=== PATIENT | female | born 1990 | race Caucasian/White ===

== ENCOUNTER 2024-10-02 16:23 | Outpatient (CLI) | payer BC, SELFPAY | END 2024-10-02 16:24 | disposition home or self-care (01) | LOC: NFLDREF 10-07 23:23 | PROVIDERS: Visit Provider Advanced Practice Midwife | DX: Z34.93 Encounter for supervision of normal pregnancy, unspecified, third trimester (principal); R79.0 Abnormal level of blood mineral; Z3A.32 32 weeks gestation of pregnancy | CPT/HCPCS: 82728; 86592 ==

== ENCOUNTER 2024-10-23 14:17 | Outpatient (CLI) | payer BC, SELFPAY | END 2024-10-23 14:18 | disposition home or self-care (01) | LOC: NFLDREF 10-27 18:01 | PROVIDERS: Visit Provider Advanced Practice Midwife | DX: Z34.83 Encounter for supervision of other normal pregnancy, third trimester (principal) | CPT/HCPCS: 87081; 87653 ==

== ENCOUNTER 2024-11-24 02:50 | Inpatient (IN) | payer BC, SELFPAY ==
[2024-11-24] VITALS (51 sets, daily range): BP systolic 112–154; BP diastolic 58–80; PULSE 55–168; RESP 16–18; TEMP 36.7–37.3; O2SAT 87–100; BMI 33.0
--- NOTE | 2024-11-24 02:50 | P.LDBA_ITS ---
Subjective History of Present Illness Date Seen: 11/24/24 Narrative: Patient is being admitted to Labor and Delivery for spontaneous labor. Reports contractions for the last 1-2 days which got stronger this evening around 2100. She is a 34 year old at 40.1 weeks gestation, her Devon is here with her. On arrival she was placed on the EFM and with her first contraction had a deep variable to 50-60's that lasted 2.5 minutes. Second contraction on the monitor she had another deep variable to the 60's for approximately 40 seconds, the next contraction baby tolerated well without deceleration. Moderate variability with accelerations and now occasional variables with contra ctions are seen. Her full history and physical was dictated by myself on 10/31/24. Please see this for details. Specific Issues/Plans Partner: Devon? Transfer at 32 weeks from [facility]. H&P completed by Carmencita Boyer CNM on 10/31/24? ? #Breech at 36.5 weeks, RESOLVED Bedside US 11/05 Vertex presentation Consider US on admission to Center to confirm presentation # Advanced maternal age?35-39 years old at delivery? Recommend Genetic Screening Test-normal NIPT ? 20-week Level II detailed ultrasound with M-not completed at outside facility before transfer # Echogenic cardiac foci. NIPT normal. # Restless leg syndrome, Low ferritin, normal Hgb Received IV Venofer, helped some # Anxiety. No current concerns. # Vitamin D deficiency # Hx of tongue tie with other children that make her journey a struggle Desires to see Imaging:? 1st trimester: none in transfer record. Please confirm at next visit. ? Anatomy scan: 07/07/24 Single IUP. Small intracardiac echogenic focus in right ventricle, normal NIPT and no other abnormalities. EFW 48%.?? Transfer OB Labs:? Blood type: A+, antibody screen negative.? Hgb (05/15): 12.4? Ferritin (05/15): 7; (07/28) 4??? Platelets (05/15): 248? Rubella: Immune? RPR: non-reactive? HBsAg: negative? HIV: negative? GC/Chlamydia: not done? Pap (01/2020): NIL? 1hr gtt: not completed, A1C 4.9?(done here at 32 weeks) TSH (05/15): 2.51 Vit D (05/15): 25; 14 35 ? Immunizations/Other: 32wk Mental Health:? 34wk hgb 10/02/24:?12.0 Pap: due PP? COVID: declined Flu: declined, TDAP: declined OB - Problem Based A/P Additional Plan (1) Pain during labor: Status: Acute (2) 40 weeks gestation of : Status: Acute Plan Assessment:?? at 40.1 weeks gestation?? GBS negative? Patient is coping well with challenges of labor.?? Labor type: Spontaneous, Early labor? Category 2 FHR pattern.? complicated by: #Breech at 36.5 weeks, RESOLVED # Advanced maternal age?35-39 years old at delivery? # Echogenic cardiac foci. NIPT normal. # Restless leg syndrome, # Anxiety. No current concerns. # Vitamin D deficiency #Hx of tongue tie would like to meet with during this stay Plan:?? * ?Admit to L & D? * IV access: none, consider if return of deep prolonged variables * Monitoring per policy: continuous ? * Candidate for analgesia of choice.? Planning unmedicated for pain management * Desires waterbirth.? Consent signed and Hep C negative * Expectant management at this time ? * Patient encouraged to reposition and ambulate to promote physiologic labor and . * Anticipate ? Delivery/Labor/Induction Plan Plan: expectant management OB Exam Physical Exam Vital signs: Temp Pulse Resp BP Pulse Ox 98.3 F 55 L 16 124/77 100 11/24/24 02:25 11/24/24 02:18 11/24/24 02:25 11/24/24 02:18 11/24/24 02:14 Narrative: Vitals Reviewed Constitutional:? Alert and oriented x3 HEENT:? Normocephalic, atraumatic Neck:? Supple Lungs:? Clear to auscultation bilaterally Heart:? Regular rate and rhythm, no murmur, rub or gallop Abdomen:? Soft, nontender, and gravid. Vertex by Eligio's, confirmed with cervical exam per RN. Extremities:? No edema or erythema Cervix: 3.5 cm/60%/-1 station vertex NST: 135 bpm/moderate variability/+accelerations/ prolonged and variable decelerations/ moderate contractions Detailed Labor and Delivery Exam Patient Gravid: yes
--- NOTE | 2024-11-24 05:21 | PM.OBPNL ---
Subjective Date Seen: 11/24/24 Narrative: ?Shazia is coping well with labor pain/contractions. ?Devon is with her for support. ?She is using repositioning and relaxation for comfort and pain management.?She has started feeling some rectal pressure with contractions. Objective Exam: VSS, afebrile General Appearance:? Calm, cooperative. ?No acute distress. ? Psychiatric Exam: Alert and oriented, appropriate affect Abdomen: Gravid Ctx: ?Q 3-5 min apart. ? ?Moderate ? FHTs: Baseline: 140. ? ? Variability: moderate. ?Accels:+. ? ?Decels: ?variables with some contractions. SVE: /-1 Membranes: Intact ? Vital Signs: Last Vital Signs Temp 98.3 F 11/24/24 02:25 Pulse 58 L 11/24/24 05:20 Resp 16 11/24/24 02:25 BP 116/58 L 11/24/24 05:20 Pulse Ox 100 11/24/24 02:14 Plan Plan: Assessment:?? at 40.1 weeks gestation?? GBS neg Patient is coping well with challenges of labor.?? Labor type: Spontaneous, Early labor? Category 2 FHR pattern.? complicated by: #Breech at 36.5 weeks, RESOLVED # Advanced maternal age?35-39 years old at delivery? # Echogenic cardiac foci. NIPT normal. # Restless leg syndrome, # Anxiety. No current concerns. # Vitamin D deficiency #Hx of tongue tie would like to meet with during this stay Labor complicated by: Category 2 tracing? Plan:?? Continue with routine intrapartum cares as ordered.?? Patient encouraged to move and change positions to promote physiologic labor and .?? Nonpharmacologic comfort measures per patient preference. Candidate for analgesia of choice if desired. Patient planning waterbirth Anticipate progress to NVD. ?
[2024-11-24 06:41] LABS: Hematocrit 38.5 % (33.0-51.0); Hemoglobin* 12.9 gm/dL (12.0-16.0); Immature Granulocytes Abs Auto 0.13 K/uL (0.00-0.30); Immature Granulocytes Pct Auto 1.4 %; Mean Corpuscular HGB Conc 34 gm/dL (32-36); Mean Corpuscular Hemoglobin 31 pg (26-34); Mean Corpuscular Volume 92 fL (80-100); RDW Coefficient of Variation % 14.8 % (11.5-15.5); Red Blood Count 4.20 m/uL (4.00-5.20); White Blood Count* 9.38 K/uL (4.50-11.00)
[2024-11-24 06:42] LABS: Lymphocytes Absolute Auto 1.30 K/uL (0.90-2.90); Slide Review Reflex No
[2024-11-24] MEDS: LACTATED RINGERS 1000 ML 1,000 ML 500 ML IV (07:49)
--- NOTE | 2024-11-24 08:00 | PM.OBPNL ---
Subjective Date Seen: 11/24/24 Narrative: Patient was admitted to Labor and Delivery for spontaneous labor. She is a 34 year old at 40.1 weeks gestation, her Devon is here with her. She is coping very well with increasing intensity and frequency of contractions with increasing pressure. No LOF. Good movement. She does report some bloody show with her last void. Intermittent deep variables noted. Specific Issues/Plans Partner: Devon?Transfer at 32 weeks from [facility]. H&P completed by Carmencita Boyer CNM on 10/31/24? ? #Breech at 36.5 weeks, RESOLVED Bedside US 11/05 Vertex presentation Consider US on admission to Center to confirm presentation # Advanced maternal age?35-39 years old at delivery? Recommend Genetic Screening Test-normal NIPT ? 20-week Level II detailed ultrasound with MFM-not completed at outside facility before transfer # Echogenic cardiac foci. NIPT normal. # Restless leg syndrome, Low ferritin, normal Hgb Received IV Venofer, helped some # Anxiety. No current concerns. # Vitamin D deficiency # Hx of tongue tie with other children that make her journey a struggle Desires to see Imaging:? 1st trimester: none in transfer record. Please confirm at next visit. ? Anatomy scan: 07/07/24 Single IUP. Small intracardiac echogenic focus in right ventricle, normal NIPT and no other abnormalities. EFW 48%.?? Transfer OB Labs:? Blood type: A+, antibody screen negative.? Hgb (05/15): 12.4? Ferritin (05/15): 7; (07/28) 4??? Platelets (05/15): 248? Rubella: Immune? RPR: non-reactive? HBsAg: negative? HIV: negative? GC/Chlamydia: not done? Pap (01/2020): NIL? 1hr gtt: not completed, A1C 4.9?(done here at 32 weeks) TSH (05/15): 2.51 Vit D (05/15): 25; 4/14 35 ? Immunizations/Other: 32wk Mental Health:? 34wk hgb 10/02/24:?12.0 Pap: due PP? COVID: declined Flu: declined, TDAP: declined Objective Exam: Objective: Constitutional: Alert and oriented x3, no distress, coping well Vital signs stable, see nurse documentation Abdomen: gravid, contractions palpate moderate with contractions and soft between Cervix: 6-7 cm/90%/-1 station/vertex. with palpable sutures and verified with informal bedside US NST: 135 bpm/moderate variability/accelerations present/variable decelerations intermittent and periodic/every 5-6 min contractions x 90-100 sec Vital Signs: Last Vital Signs Temp 98.4 F 11/24/24 07:22 Pulse 58 L 11/24/24 07:22 Resp 18 11/24/24 07:22 BP 121/76 11/24/24 07:22 Pulse Ox 99 11/24/24 07:59 Plan Plan: ASSESSMENT:?? 34 at 40 1/7 weeks gestation?? complicated by:?AMA Labor type: Spontaneous, active labor?? Category 2 FHR pattern.??? Labor complicated by: Cat 2 tones?? GBS negative ?? PLAN:?? 1. Routine intrapartum cares as ordered. Continue with expectant management, continue to treat cat 2 tones consdervatively 2. Monitoring per policy, continuous 3. Planning unmedicated . Desires water but discussed increased risk due to cat 2 tones and I cannot guarantee that baby's reflexes are intact enough to safely under water. Pt verbalized understanding. If decels resolve, will consider waterbirth if able. 4. Patient encouraged to reposition and ambulate to promote physiologic labor and .?? 5. Anticipate ?
--- NOTE | 2024-11-24 09:37 | W.PM.VAGDE_ITS ---
OB Procedure Vag Delivery Mother Details Mother Details: The patient is a 34 year-old, 5, Para 4, admitted on 11/24/24 at 40w1d gestation. Admission Date: 11/24/24 Additional Details Amniotic Membrane Status: SROM Amniotic Membrane Rupture Date: 11/24/24 Amniotic Membrane Rupture Time: 09:12 Amniotic Membrane Fluid Description: Clear Analgesia/Anesthesia Type: None Waterbirth: No Pitcoin: No Intrapartal Events: None Labor Onset: 21:00 (on 11/23) Complete: 08:53 (assumed with spontaneous pushing) Pushin:53 Heart: heart tones during second stage were category 2 with intermittent deep variables but rapid progress was evident. Delivery Details Delivery Date: 11/24/24 Delivery Time: :17 Route of delivery: Gender: Male Viability: Alive; Heart Rate Present Position at Delivery: OA Delivery Details: Patient was admitted for spontaneous labor at term and progressed normally with out augmentation. SROM noted at 0912 with clear fluid. Patient was complete at 0853 after lip cervical anterior lip reduced and pushing at 0853. of a viable male at 0917 in right lateral position. Vertex delivered OA. One nuchal cord easily slipped. No shoulder dystocia. Body delivered easily and without incident. passed to mothers abdomen and was stimulated. Cord was clamped and cut at > 5 minutes. APGARS were 7 at one minute and 8 at five minutes respectively. Mouth was bulb suctioned. Intact placenta with a 3 vessel cord delivered spontaneously at 0925. Fundus firm. No lacerations identified. QBL 150 cc. Mother and baby stable; mother plans to breastfeed. Infant weight 7lb 14.6oz.? 1 Minute Interval Total Score: 7 5 Minute Interval Total Score: 8 Additional Details Shoulder Dystocia: No Placenta Delivery Time: 09:25 Placental Delivery Description: Spontaneous Procedure Done: Global Blood Loss: 150 Laceration: None Episiotomy Description: None Blood Loss Measurement Type: QBL Bakri Used: No Sponge/Need Count Correct: Yes Cord Vessel Description: 3 Vessels, Nuchal Cord and Reduced Event Summary Status: Mother and infant were stable after delivery. Mack Vu APRN, CNM, was present for visit and have reviewed and agree with documentation by the Certified Nurse Midwifery Student.? Disposition: floor
[2024-11-25 04:43] VITALS: BP 117/78; PULSE 78; RESP 16; TEMP 37; O2SAT 98
[2024-11-25 06:50] LABS: Hemoglobin* 12.4 gm/dL (12.0-16.0)
--- NOTE | 2024-11-25 09:08 | P.DS_ITS ---
DS: Providers Provider Date Seen: 11/25/24 Date of admission: 11/24/24 02:50 Primary care physician: Not a Local Provider Admitting Clinician: Mario Boyer CNM Attending Physician on discharge: Mario Boyer CNM DS: Diagnosis Discharge Diagnosis (1) care and examination immediately after delivery: Status: Acute (2) Lactating mother: Status: Acute (3) Anxiety: Status: Acute Exam Narrative: Exam Narrative: GENERAL APPEARANCE:? normal affect, alert, no distress MOOD:? appropriate CHEST:? clear to auscultation HEART:? regular rate and rhythm ABDOMEN:? soft, non-tender the uterine fundus is At Umbilicus, Midline and is appropriate for the stage of recovery. PERINEUM:? mild edema of the perineum. EXTREMITIES:? normal and no edema Const: Vital Signs, click to edit/add: Vital Signs - 24 hr 11/24/24 09:17 11/24/24 09:22 11/24/24 09:26 Temperature Pulse Rate Pulse Rate [Pulse Oximeter] Respiratory Rate 18 Blood Pressure Blood Pressure [Ri ght Arm] Pulse Oximetry 95 100 Oxygen Delivery Me thod 11/24/24 09:27 11/24/24 09:28 11/24/24 09:35 Temperature Pulse Rate 83 70 Pulse Rate [Pulse Oximeter] Respiratory Rate Blood Pressure 154/73 H 136/63 Blood Pressure [Ri ght Arm] Pulse Oximetry 100 Oxygen Delivery Pa thod 11/24/24 09:35 11/24/24 09:41 11/24/24 09:42 Temperature 99.2 F Pulse Rate 70 Pulse Rate [Pulse Oximeter] Respiratory Rate 18 18 Blood Pressure 129/65 Blood Pressure [Ri ght Arm] Pulse Oximetry Oxygen Delivery Pa thod 11/24/24 09:56 11/24/24 09:57 11/24/24 10:11 Temperature Pulse Rate 62 Pulse Rate [Pulse Oximeter] Respiratory Rate 18 18 Blood Pressure 123/67 Blood Pressure [Ri ght Arm] Pulse Oximetry Oxygen Delivery Pa thod 11/24/24 10:12 11/24/24 10:26 11/24/24 10:27 Temperature Pulse Rate 67 68 Pulse Rate [Pulse Oximeter] Respiratory Rate 16 Blood Pressure 121/77 124/65 Blood Pressure [Ri ght Arm] [facility] 10[facility]45 11/24/24 10:45 11/24/24 10:58 Temperature Pulse Rate 68 Pulse Rate [Pulse Oximeter] Respiratory Rate 18 18 Blood Pressure 113/58 L Blood Pressure [Ri ght Arm] Pulse Oximetry Oxygen Delivery Me thod 11/24/24 10:59 11/24/24 11:11 11/24/24 11:12 Temperature 98.5 F Pulse Rate 67 61 Pulse Rate [Pulse Oximeter] Respiratory Rate 18 Blood Pressure 118/70 121/69 Blood Pressure [Ri ght Arm] Pulse Oximetry Oxygen Delivery Me thod 11/24/24 11:26 11/24/24 11:27 11/24/24 13:17 Temperature 98.6 F Pulse Rate 57 L Pulse Rate [Pulse Oximeter] 68 Respiratory Rate 18 16 Blood Pressure 117/65 Blood Pressure [Ri ght Arm] 113/69 Pulse Oximetry 97 Oxygen Delivery Pa thod Room Air 11/24/24 16:41 11/24/24 20:00 11/24/24 23:19 Temperature 99.2 F 98.0 F 98.2 F Pulse Rate Pulse Rate [Pulse Oximeter] 68 66 62 Respiratory Rate 16 18 16 Blood Pressure Blood Pressure [Ri ght Arm] 112/80 117/71 117/78 Pulse Oximetry 96 98 Oxygen Delivery Me thod Room Air Room Air Room Air 11/25/24 04:43 Temperature 98.6 F Pulse Rate Pulse Rate [Pulse Oximeter] 78 Respiratory Rate 16 Blood Pressure Blood Pressure [Ri ght Arm] 117/78 Pulse Oximetry 98 Oxygen Delivery Me thod Room Air OB - DS: Summary Hospital Course Hospital Course: Shazia is a 34 y.o. G 5 P 4 who was admitted to L & D for spontaneous onset of labor. ?She had a NVD that was uncomplicated. The patient feels well. ?The pain is well controlled with current medications. ?She has no new complaints. ?She is breast feeding and reports things are going well. the patient has done well.? Vitals have been stable.? She has remained afebrile.? Has a good appetite, is tolerating a general diet. ?She is voiding without difficulty.? She is passing gas and has not had a bowel movement.? She is ambulating and denies any dizziness.? Has small amount of rubra lochia. Problems: none Discharge home with baby.? Follow up in 2 weeks and 6 weeks.? , may see if needed? Hgb 12.4. ?? For pain control of perineum, breast and pelvic pain, take 600 mg Ibuprofen every 6 hours as needed by mouth or 1000 mg acetaminophen (Tylenol) every 6 hours by mouth as needed. You can alternate these so you are taking something every 3 hours as needed. A heating pad can also be used for your abdomen or breasts. You may also take docusate sodium up to twice daily to soften your stools and help to prevent constipation. You may wean off of it when your stools return to normal.? Peripartum Data delivery method: Vaginal Laceration description: None complications: none Infant Gender: Male Discharge Plan: Home Status at Discharge Functional status at discharge: independent ambulation Overall status at discharge: patient is progressing back to baseline Time Spent with Patient Time attestation: Total time spent providing and/or coordinating discharge services: Time spent: Less than 30 minutes Discharge Plan Discharge Disposition: Home, Self-Care Date of Admission: 11/24/24 02:50 Attending Provider on Discharge: Yanet Castanon Primary Care Provider: Provider,Not a Local Condition: Stable Anticipated Discharge Date/Time: 11/25/24 12:00 Discharge Medications: New acetaminophen 500 mg Tablet 1,000 mg PO Q6H PRNQty: 0 0RF docusate sodium 100 mg Capsule 100 mg PO DAILY Qty: 0 0RF ibuprofen 600 mg Tablet 600 mg PO Q6H PRNQty: 0 0RF Continued cholecalciferol (vitamin D3) 250 mcg (10,000 unit) tablet 250 mcg PO QDAY PRN Triple Magnesium Complex 400 mg magnesium capsule PO DAILY One-A-Day -1 27 mg iron- 800 mcg-235 mg capsule 1 cap PO DAILY Vitron-C 65 mg iron- 125 mg tablet,delayed release (DR/EC) 1 tab PO QDAY Discharge Orders: Discharge Order (Routine); Ordered 11/25/24 Ordered By: Yanet Castanon Patient Education: OB Over the Counter Medication Information, OB Vaginal/Breast Feeding Additional Instructions: Discharge instructions were reviewed with the patient including signs and sy mptoms of infection and home going medications Nothing vaginally for 6 weeks: no tampons or intercourse Off Work or School for 6 weeks 2-week visit: discuss infant feeding concerns, review control options and screen for anxiety/depression. 6-week visit for an annual exam. consultation services are available to all mothers and babies for the first year after delivery.? To make an appointment, please call [phone]. Activity Level: Activity as Tolerated and No strenuous activity Discharge Diet: Regular Follow Up Appointments: [facility] [Provider Group] Forms: [employer] Info Instructions
[2024-11-25 09:19] VITALS: BP 119/76; PULSE 77; RESP 16; TEMP 36.6; O2SAT 97
== END 2024-11-25 13:22 | disposition home or self-care (01) | DRG 560 ==
LOC: OB OUT 02:50 → OB 02:50
PROVIDERS: Midwife; Admitting Provider Advanced Practice Midwife; Visit Provider Advanced Practice Midwife
DX: O76 Abnormality in fetal heart rate and rhythm complicating labor and delivery (principal); O99.344 Other mental disorders complicating childbirth; F41.9 Anxiety disorder, unspecified; Z37.0 Single live birth; Z3A.40 40 weeks gestation of pregnancy
CPT/HCPCS: 36415; 85018; 85025; 86592; 86850; 86900; 86901; J7120

== ENCOUNTER 2024-11-27 10:55 | Outpatient (CLI) | payer BC, SELFPAY ==
--- NOTE | 2024-11-27 13:43 | W.PM.LAC.MC ---
Consult Note - Mom Date of Visit Date of visit: 11/27/24 Reason for consultation: Assistance Needed and Other (questioning tongue/lip tie) Visit Code: Visit Patient's Information Phone number: [phone] : 5 Para: 4 Allergies No Known Drug Allergies Allergy (Verified 11/19/24 13:34) Mother's Medical History: Medical History (Updated 11/27/24 @ 00:01 by Background Daemon) Family history of factor V deficiency ?Z83.2 - Family history of diseases of the blood and blood-forming organs and certain disorders involving the immune mechanism (ICD-10) Work Plans: return to work Apr 2025, dental hygienist Delivery Information Delivery type: Vaginal Gestational Age: 40+1 Gestational Weight For Age: AGA Weight: 3.59 kg Discharge Weight: 3.47 kg Percentage weight loss: 3.4 Baby's Information Baby's Age at Visit: 3 days Baby's Provider or Clinic: [facility] Jaundice: No Past Experience Past Experience: Yes (3 other children, >1 year each) Current Frequency of Day Feedings: every 1-3 hours day and night Both Breasts: Yes (offered) Suck: strong Latch: comfortable Length of Time: 10-20 minutes Goals: at least 1 year Pumping Pumping: Yes (to relieve fullness) Quantity Pumped: 1/2-1 oz as needed Supplementing EBM Supplement: No Formula Supplement: No Baby Elimination Number of Wet Diapers a Day: 4 so far today Number of BM a Day: 3 or 4, yellow and seedy today Breast/Nipple Condition Breast Information: Breasts are symmetrical with rounded lower quadrants, intramammary distance is less than 1.5 inches. No erythema. Nipples are supple, everted prior to feeding. Breast Shape: Round Engorgement: No Maternal Nipple Condition - Left: Common Nipple Maternal Nipple Condition - Right: Common Nipple Sore Nipples: No Baby Assessment Skin: Normal Tongue/frenulum: Restricted mid-range (ever so slightly, does not appear to be compromising function at this time) and Other (TABBY score: 7) Palate: Average Lips: Relaxed and Other (lips closed when asleep) Jaw Alignment: Symmetrical Mucosa: [place], moist Onsite Observation Pre-Feed weight: 3.487 kg Position: Cross cradle Attachment/latch-on achieved: Easily Suck pattern: Suck burst and normal rest Swallow: Audible, consistent Behavior following feed: Relaxed, sleepy Pre-Nursing Left Nipple: Within Normal Limits Pre-Nursing Right Nipple: Within Normal Limits Post-Nursing Left Nipple: Within Normal Limits Post-Nursing Right Nipple: Within Normal Limits Assessments/Interventions Assessments/Interventions: Danae able to latch easily to mom's breast; nursed LEFT side for 10 minutes and then released. Mom's nipple rounded with no creasing noted and she reports not pain. Did work with mom to relatch baby for a wider, deeper latch and he sustained this position well. Swallowing heard, no clicking/smacking noted. Mom attempted to latch baby to her RIGHT breast, he was not interested for more than a few minutes. Education provided: Early feeding cues to maximize timing of latching, Asymmetric latch technique for wide/deep latch to increase milk, Transfer for baby and increase comfort for mom, Supply/demand nature of milk supply, Alternative feeding methods (SNS, cup, finger feeding, bottling) (discussed bottle options when desired to add in), Pumping for milk management and Milk collection, storage Handouts Provided: Tongue tie release information given; discussed very minimal posterior tongue tie seen. Given history of 3 other children needing tongue tie release seems prudent to re-evaluate in about 2 weeks as it's both form and function that needs to be considered with tongue ties. Suck training exercises: especially jaw massage and tongue extension; also discussed dennys vazquez TABBY tool for reference of tongue tie: 6-7/8 falls into a watch and wait category and currently baby doing quite well with feeding both given weight gain and mom's comfort with latching Follow-Up Suggested follow up: Appointment as needed (mom to call with additional questions/concerns) Time Spent Time spent with patient (min): 80 (reviewing EMR and face to face time with mom and ) Meds Home Medications and Allergies Home Medications ?Medication ?Instructions ?Recorded ?Confirmed ?Type cholecalciferol (vitamin D3) 250 250 mcg PO QDAY PRN 09/30/24 11/24/24 History mcg (10,000 unit) tablet magnesium aspart,citrate,oxide mg PO DAILY 09/30/24 11/19/24 History (Triple Magnesium Complex) vits 168-iron 27 mg-folic 1 cap PO DAILY 09/30/24 11/24/24 History acid 800 mcg-omega3 235 mg capsule (One-A-Day -1) iron,carbonyl 65 mg-vitamin C 125 1 tab PO QDAY 10/31/24 11/24/24 History mg tablet,delayed release (Vitron-C) acetaminophen 500 mg tablet 1,000 mg (2 x 500 mg) PO Q6H PRN 11/25/24 Rx #0 tabs docusate sodium 100 mg capsule 100 mg PO DAILY #0 caps 11/25/24 Rx ibuprofen 600 mg tablet 600 mg PO Q6H PRN #0 tabs 11/25/24 Rx Allergies Allergy/AdvReac Type Severity Reaction Status Date / Time No Known Drug Allergies Allergy Verified 11/19/24 13:34
== END 2024-11-27 10:56 | disposition home or self-care (01) ==
LOC: OB LAC 10:56
PROVIDERS: PCP Family Medicine; Visit Provider Advanced Practice Midwife
DX: Z39.1 Encounter for care and examination of lactating mother (principal)
CPT/HCPCS: G0463

== ENCOUNTER 2025-01-05 12:07 | Outpatient (CLI) | payer BC, SELFPAY ==
[2025-01-08 02:37] LABS: HPV Source Cervix
[2025-01-19 11:08] LABS: Pap Test Screened Manually Done
== END 2025-01-05 12:08 | disposition home or self-care (01) ==
PROVIDERS: PCP Family Medicine; Visit Provider Advanced Practice Midwife
DX: Z12.4 Encounter for screening for malignant neoplasm of cervix (principal)
CPT/HCPCS: 87624; 87625; 88141; 88142; 88175